=== PATIENT | male | born 1995 ===

== ENCOUNTER 2018-08-01 22:05 | Emergency (ER) | payer BC ==
[2018-08-01 22:12] VITALS: BP 112/75; PULSE 73; RESP 16; TEMP 98.1; O2SAT 98
--- NOTE | 2018-08-01 22:36 | C.PDOC ---
History Of Present Illness 23 year old male presents to the ER with a complaint of back pain and spasm that began today after picking up his child. Patient took advil at home with no relief. He has Hx of similar pain in the past. Denies weakness, numbness, dysuria, hematuria, or incontinence. Time Seen by Provider: 08/01/18 22:13 Chief Complaint (Nursing): Back Pain History Per: Patient History/Exam Limitations: no limitations Onset/Duration Of Symptoms: Hrs Current Symptoms Are (Timing): Still Present Quality Of Discomfort: Unable To Describe Previous Symptoms: None Associated Symptoms: None Recent travel outside of the [place]: No Past Medical History Reviewed: Historical Data, Nursing Documentation, Vital Signs Vital Signs: Last Vital Signs Temp 98.1 F 08/01/18 22:09 Pulse 73 08/01/18 22:09 Resp 16 08/01/18 22:09 BP 112/75 08/01/18 22:09 Pulse Ox 98 08/01/18 22:09 Family History: States: Unknown Family Hx - Social History Hx Alcohol Use: No Hx Substance Use: No - Immunization History Hx Tetanus Toxoid Vaccination: Yes (2013) Hx Influenza Vaccination: No Hx Pneumococcal Vaccination: No Review Of Systems Genitourinary: Negative for: Dysuria, Incontinence, Hematuria Musculoskeletal: Positive for: Back Pain Neurological: Negative for: Weakness, Numbness Physical Exam - Physical Exam Appears: Non-toxic Skin: Normal Color, Warm, Dry Head: Atraumatic, Normacephalic Eye(s): bilateral: Normal Inspection Neck: Normal ROM Chest: Symmetrical Cardiovascular: Rhythm Regular, No Murmur Respiratory: Normal Breath Sounds, No Wheezing Back: Normal Inspection, No CVA Tenderness, No Vertebral Tenderness, No Paraspinal Tenderness Extremity: Normal ROM (x4), No Tenderness, No Deformity Neurological/Psych: Oriented x3, Normal Speech, Normal Motor, Normal Sensation Gait: Steady ED Course And Treatment O2 Sat by Pulse Oximetry: 98 (Room air) Pulse Ox Interpretation: Normal Medical Decision Making Medical Decision Making: Motrin and flexeril administered. Patient reports improvement of pain, he is resting comfortably, ambulatory with steady gait, vitals are stable, will discharge home with Rx and instructions to follow up with PMD. Disposition Counseled Patient/Family Regarding: Diagnosis, Need For Followup, Rx Given - Disposition Referrals: [facility] [Outside] Disposition: HOME/ ROUTINE Disposition Time: 22:36 Condition: GOOD Additional Instructions: Apply heat to area for 15-20 minutes at a time 2-3 times per day Take Tylenol for pain as needed Take Motrin for pain every 6-8 hours as needed, with food to not upset stomach Take Flexeril for muscle pain and spasm every 6-8 hours as needed, caution can cause drowsiness Follow up with your primary medical doctor or clinic in 2-5 days for further evaluation Return to the emergency department at any time if symptoms persist or worsen. Prescriptions: Acetaminophen [Acetaminophen Extra Strength] 500 mg PO Q12 #24 tablet Cyclobenzaprine [Cyclobenzaprine HCl] 10 mg PO TID #30 tab Ibuprofen [Motrin] 600 mg PO Q8 #30 tab Instructions: Lumbar Muscle Strain (DC) Forms: [employer] (Polish) - POA Present On Arrival: None - Clinical Impression Clinical Impression: Lumbar sprain - PA / RANGE CONSERVATIONIST / Resident Statement MD/DO has reviewed & agrees with the documentation as recorded. - Scribe Statement The provider has reviewed the documentation as recorded by the Scribevangelina Garcia All medical record entries made by the Zullyibevangelina were at my direction and personally dictated by me. I have reviewed the chart and agree that the record accurately reflects my personal performance of the history, physical exam, medical decision making, and the department course for this patient. I have also personally directed, reviewed, and agree with the discharge instructions and disposition.
== END 2018-08-01 23:01 | disposition home or self-care (01) ==
LOC: C.ER 22:05
DX: S33.5XXA Sprain of ligaments of lumbar spine, initial encounter (principal); X50.9XXA Other and unspecified overexertion or strenuous movements or postures, initial encounter